=== PATIENT | male | born 1990 | race Two or more races ===

== ENCOUNTER 2017-05-01 19:15 | Emergency (ER) | payer SELFPAY ==
[~2017-05-01] VITALS: Ht 172.7 cm; Wt 108.9 kg
[2017-05-01 19:25] VITALS: BP 156/101
[2017-05-01] MEDS ORDERED: DEXAMETHASONE SOD PHOS 20 MG/5 ML VIAL. ONE (19:41)
[2017-05-01] MEDS ORDERED: EPINEPHrine 1 MG/ML VIAL ONE (19:41)
[2017-05-01] MEDS ORDERED: diphenhydrAMINE 50 MG/ML VIAL ONE (19:41)
[2017-05-01] MEDS ORDERED: FAMOTIDINE 20 MG/2 ML VIAL ONE (19:42)
[2017-05-01] MEDS ORDERED: EPINEPHrine SYRINGE 1 MG/10 ML SYRINGE IM ONE (20:00)
[2017-05-01] MEDS ORDERED: diphenhydrAMINE 50 MG/ML VIAL IVP ONE (20:00)
[2017-05-01] MEDS ORDERED: DEXAMETHASONE SOD PHOS 20 MG/5 ML VIAL. IV ONE (20:00)
[2017-05-01] MEDS ORDERED: FAMOTIDINE 20 MG/2 ML VIAL IVP ONE (20:00)
--- NOTE | 2017-05-01 20:00 | PHYS DOC ---
Adult General Chief Complaint Chief Complaint: ALLERGIC REACTION HPI HPI Patient is a 27 year old male presenting to the emergency department for evaluation of an allergic reaction after he was stung by a wasp on his right ear. Patient has diffuse hives throughout his entire body and he feels itchy but he denies any shortness of breath throat swelling or tongue swelling. Patient denies having any allergic reaction in the past. He is nontoxic appearing with normal vital signs. All communication done with language line blue phone power tool repairer. Review of Systems Review of Systems Constitutional: Denies fever or chills [] Eyes: Denies change in visual acuity, redness, or eye pain [] HENT: Denies nasal congestion or sore throat [] Respiratory: Denies cough or shortness of breath [] Cardiovascular: No additional information not addressed in HPI [] GI: Denies abdominal pain, nausea, vomiting, bloody stools or diarrhea [] : Denies dysuria or hematuria [] Musculoskeletal: Denies back pain or joint pain [] Integument: + rash, skin lesions [] Neurologic: Denies headache, focal weakness or sensory changes [] Current Medications Current Medications Current Medications Medications (Trade) Dose Ordered Sig/Julien Start Time Stop Time Status Last Admin Dose Admin Dexamethasone Sodium Phosphate (Decadron) 20 mg STK-MED ONCE 05/01/17 19:41 05/01/17 19:42 DC Diphenhydramine HCl (Benadryl) 50 mg STK-MED ONCE 05/01/17 19:41 05/01/17 19:42 DC Diphtheria/ Tetanus/Acell Pertussis (Boostrix) 0.5 ml ONCE ONCE 05/01/17 20:15 05/01/17 20:16 DC 05/01/17 20:20 0.5 ML Epinephrine HCl (Adrenalin) 0.3 mg 1X ONCE 05/01/17 20:15 05/01/17 20:16 Cancel Epinephrine HCl (EPINEPHrine SYRINGE) 0.3 mg 1X ONCE 05/01/17 20:00 05/01/17 20:01 DC 05/01/17 19:55 0.3 MG Famotidine (Pepcid) 20 mg STK-MED ONCE 05/01/17 19:42 05/01/17 19:43 DC Allergies Allergies Allergies Coded Allergies Type Severity Reaction Last Updated Verified No Known Drug Allergies 05/01/17 No Physical Exam Physical Exam Constitutional: Well developed, well nourished, no acute distress, non-toxic appearance. [] HENT: Normocephalic, atraumatic, bilateral external ears normal, oropharynx moist, no oral exudates, nose normal. Bite wound to right ear noted however the stinger is not in his ear any longer. Eyes: PERRLA, EOMI, conjunctiva normal, no discharge. [] Neck: Normal range of motion, no tenderness, supple, no stridor. [] Cardiovascular:Heart rate regular rhythm, no murmur [] Lungs & Thorax: Bilateral breath sounds clear to auscultation [] Abdomen: Bowel sounds normal, soft, no tenderness, no masses, no pulsatile masses. [] Skin: Diffuse hives involving chest abdomen back and upper extremities no noted hives on lower extremities. Back: No tenderness, no CVA tenderness. [] Extremities: No tenderness, no cyanosis, no clubbing, ROM intact, no edema. [] Neurologic: Alert and oriented X 3, normal motor function, normal sensory function, no focal deficits noted. [] Current Patient Data Vital Signs Vital Signs Date Time Temp Pulse Resp B/P (MAP) Pulse Ox O2 Delivery O2 Flow Rate FiO2 05/01/17 19:25 97.2 85 17 156/101 (119) 98 Room Air 97.2 EKG EKG [] Radiology/Procedures Radiology/Procedures [] Course & Med Decision Making Course & Med Decision Making Patient given epinephrine and Solu-Medrol Pepcid and Decadron. Patient's hive almost resolved completely and he is still having no shortness of breath or wheezing. His repeat vital signs are normal. I recommended that he stay and in the emergency department for another 3-4 hours and keep a close eye on him. Refused stating that his child is with him and he really wants to go home. Patient verbalized understanding of why wanted to keep him in the emergency room and he accepted the risks of and disability by leaving prior to my recommendation. All communication done with blue phone power tool repairer. I explained the importance of getting the epinephrine pen and how to take Benadryl and how to use the epinephrine pen as well. Patient aware and agreeable with plan for discharge and verbalized understanding of the need for short-term follow-up in the strict ADA return precautions discussed including worsening shortness of breath rash or other general concerns. Dragon Disclaimer Dragon Disclaimer This electronic medical record was generated, in whole or in part, using a voice recognition dictation system. Departure Departure Impression: Primary Impression: Allergic reaction Additional Impression: Wasp sting Disposition: 01 HOME, SELF-CARE Condition: GOOD Patient Instructions: Insect Sting Allergy Additional Instructions: TAKE 25MG OF BENADRYL EVERY 4-6 HOURS FOR ITCHING OR RASH. COME BACK TO THE ED WITH WORSENING RASH, SOA, OR OTHER GENERAL CONCERNS. THANK YOU! Scripts Epinephrine (EPIPEN 2-LAURA) 0.3 Mg/0.3 Ml Auto.injct 0.3 MG IJ PRN for ANAPHYLAXIS, #1 SYR Prov: ARNALDO NOLAN DO 05/01/17 Problem Qualifiers Primary Impression: Allergic reaction Encounter type: initial encounter Qualified Codes: T78.40XA - Allergy, unspecified, initial encounter ARNALDO NOLAN DO May 01, 2017 20:00
[2017-05-01] MEDS ORDERED: EPINEPHrine 1 MG/ML VIAL IM ONE (20:15)
[2017-05-01] MEDS ORDERED: DIPHTH,PERTUSS(ACELL),TET TOX 0.5 ML DISP.SYRIN. VAX IM ONE (20:15)
[2017-05-01] MEDS ORDERED: EPIPEN 2-P0.3 MG/0.3 IJ (20:45)
== END 2017-05-01 21:00 | disposition home or self-care (01) ==
LOC: ER 19:15
DX: T63.461A Toxic effect of venom of wasps, accidental (unintentional), initial encounter (principal); L29.9 Pruritus, unspecified; Y92.89 Other specified places as the place of occurrence of the external cause
CPT/HCPCS: 90471; 90715; 96372; 96374; 96375; 99284; J0171; J1100; J1200; S0028

== ENCOUNTER 2020-03-09 22:09 | Emergency (ER) | payer BC, OTHER ==
[~2020-03-09] VITALS: Ht 175.3 cm; Wt 104.5 kg
[~2020-03-09 22:09] MED LIST: EPIPEN 2-P0.3 MG/0.3 IJ
--- NOTE | 2020-03-09 23:38 | PHYS DOC ---
Past Medical History Past Medical History: High Cholesterol Past Surgical History: No Surgical History Smoking Status: Never Smoker Alcohol Use: None Drug Use: None General Adult EDM: Chief Complaint: NAUSEA/VOMITING/DIARRHA HPI: HPI: 29 year old male presents with the chief complaint of nausea and vomiting and diarrhea. Patient states he has associated abdominal discomfort with headach. Patient symptoms ongoing x 3 days. Patient denies any cough or congestion. Patient is currently febrile. Review of Systems: Review of Systems: Constitutional: positive fever Eyes: Denies change in visual acuity. [] HENT: Denies nasal congestion or sore throat. [] Respiratory: Denies cough or shortness of breath. [] Cardiovascular: Denies chest pain or edema. [] GI: positive abdominal pain, nausea, vomiting, and diarrhea. [] : Denies dysuria. [] Musculoskeletal: Denies back pain or joint pain. [] Integument: Denies rash. [] Neurologic: Denies headache, focal weakness or sensory changes. [] Endocrine: Denies polyuria or polydipsia. [] Lymphatic: Denies swollen glands. [] Psychiatric: Denies depression or anxiety. [] Heart Score: Risk Factors: Risk Factors: DM, Current or recent (<one month) smoker, HTN, HLP, family histo ry of CAD, obesity. Risk Scores: Score 0 - 3: 2.5% MACE over next 6 weeks - Discharge Home Score 4 - 6: 20.3% MACE over next 6 weeks - Admit for Clinical Observation Score 7 - 10: 72.7% MACE over next 6 weeks - Early Invasive Strategies Current Medications: Current Medications Medications (Trade) Dose Ordered Sig/[facility] Start Time Stop Time Status Last Admin Dose Admin Ketorolac Tromethamine (Toradol Im) 60 mg 1X ONCE 03/09/20 23:45 03/09/20 23:46 UNV Ondansetron HCl (Zofran) 4 mg 1X ONCE 03/09/20 23:45 03/09/20 23:46 UNV Allergies: Allergies: Allergies Coded Allergies Type Severity Reaction Last Updated Verified No Known Drug Allergies 05/01/17 No Physical Exam: PE: Constitutional: Well developed, well nourished, no acute distress, non-toxic appearance. [] HENT: Normocephalic, atraumatic, bilateral external ears normal, oropharynx moist, no oral exudates, nose normal. [] Eyes: PERRLA, EOMI, conjunctiva normal, no discharge. [] Neck: Normal range of motion, no tenderness, supple, no stridor. [] No meningeal signs Cardiovascular:tachycardia Lungs & Thorax: Bilateral breath sounds clear to auscultation [] Abdomen: Bowel sounds normal, soft, no tenderness, no masses, no pulsatile masses. [] Skin: Warm, dry, no erythema, no rash. [] Back: No tenderness, no CVA tenderness. [] Extremities: No tenderness, no cyanosis, no clubbing, ROM intact, no edema. [] Neurologic: Alert and oriented X 3, normal motor function, normal sensory function, no focal deficits noted. [] Psychologic: Affect normal, judgement normal, mood normal. [] Current Patient Data: Vital Signs: Vital Signs Date Time Temp Pulse Resp B/P (MAP) Pulse Ox O2 Delivery O2 Flow Rate FiO2 03/09/20 22:30 101.3 95 18 139/73 (95) 96 Room Air 101.3 EKG: EKG: [] Radiology/Procedures: Radiology/Procedures: [] Course & Med Decision Making: Course & Med Decision Making Pertinent Labs and Imaging studies reviewed. (See chart for details) Patient was evaluated for chief complaint. Work-up consisted of laboratory analysis and radiologic imaging. Results reviewed and discussed with patient. Patient's labs within normal limit. Patient's COVID pending. Patient treated with tylenol and zofran. Temperature improved. No vomiting in the ER. Tolerated PO. Patient will be discharged home with zofran. Advised to take tyelnol and ibuprofen. Adrien Disclaimer: Adrien Disclaimer: This electronic medical record was generated, in whole or in part, using a voice recognition dictation system. Departure Departure Impression: Primary Impression: Nausea & vomiting Additional Impressions: Headache Fever Disposition: HOME, SELF-CARE Admitting Physician: HIMS Condition: STABLE Referrals: NO PCP (PCP) Justicifation of Admission Dx: Justifications for Admission: Justification of Admission Dx: N/A JOHANNE WIGGINS DO Mar 09, 2020 23:38
[2020-03-09] MEDS ORDERED: KETOROLAC 60 MG/2 ML VIAL. IM ONE (23:45)
[2020-03-09] MEDS ORDERED: ONDANSETRON PF 4 MG/2 ML VIAL. IM ONE (23:45)
[2020-03-09] MEDS ORDERED: ACETAMINOPHEN 325 MG TABLET. PO ONE (23:45)
[2020-03-09] MEDS ORDERED: IV NORMAL SALINE 1000ML BAG 1,000 ML IV ONE (23:55)
[2020-03-09] MEDS ORDERED: KETOROLAC 30 MG/ML VIAL. IVP ONE (23:55)
[2020-03-09] MEDS ORDERED: ONDANSETRON PF 4 MG/2 ML VIAL. IVP ONE (23:55)
[2020-03-10 00:18] LABS: BASO # 0.1 x10^3/uL (0.0-0.2); BASO % 1 % (0-3); EOS % 0 % (0-3); HEMATOCRIT 43.8 % (39.0-53.0); HEMOGLOBIN 15.6 g/dL (13.0-17.5); LYMPH % 13 % (24-48); MEAN CORPUSCULAR HEMOGLOBIN 31 pg (25-35); MEAN CORPUSCULAR HGB CONC 36 g/dL (31-37); MEAN CORPUSCULAR VOLUME 87 fL (79-100); MONO # 0.4 x10^3/uL (0.0-1.1); MONO % 5 % (0-9); NEUT # 6.2 x10^3/uL (1.8-7.7); NEUT % 81 % (31-73); PLATELET COUNT 228 x10^3/uL (140-400); RED BLOOD COUNT 5.06 x10^6/uL (4.30-5.70); RED CELL DISTRIBUTION WIDTH 12.9 % (11.5-14.5); WHITE BLOOD COUNT 7.6 x10^3/uL (4.0-11.0)
--- NOTE | 2020-03-10 00:18 | RAD ---
AP chest. HISTORY: Fever AP view was taken of the chest. Patient's taken a poor inspiration which limits evaluation. There are no confluent infiltrates. There is no pleural effusion. PA and lateral views with better inspiration would be of benefit. IMPRESSION: 1. Poor inspiration. 2. No definite infiltrates. Electronically signed by: Jesús Ramírez MD (03/10/2020 12:14 AM) [id number]
[2020-03-10 00:30] LABS: CALCIUM 8.1 mg/dL (8.5-10.1); GFR 87.2; POTASSIUM 3.9 mmol/L (3.5-5.1)
[2020-03-10 00:35] LABS: ALBUMIN 3.2 g/dL (3.4-5.0); ALBUMIN/GLOBULIN RATIO 0.8 (1.0-1.7); TOTAL BILIRUBIN 0.7 mg/dL (0.2-1.0); TOTAL PROTEIN 7.3 g/dL (6.4-8.2)
[2020-03-10] MEDS ORDERED: ONDANSETRON PF 4 MG/2 ML VIAL. IVP ONE (01:15)
[2020-03-10] MEDS ORDERED: IV NORMAL SALINE 1000ML BAG 1,000 ML IV ONE (01:15)
[2020-03-10 01:24] LABS: BILIRUBIN,URINE NEGATIVE (NEG); CLARITY,URINE CLEAR; COLOR,URINE AMBER; NITRITE,URINE NEGATIVE (NEG); PH,URINE 7.5 (<5.0-8.0); PROTEIN,URINE 30 mg/dL (NEG-TRACE)
[2020-03-10 01:33] LABS: BACTERIA,URINE FEW /HPF (0-FEW); SQUAMOUS EPITHELIAL CELL,UR FEW /LPF
[2020-03-10] MEDS ORDERED: ACET325T9 PO (01:35)
[2020-03-10] MEDS ORDERED: ONDA4TAB7 PO (01:35)
[2020-03-10] MEDS ORDERED: IBUP200T44 PO (01:35)
[2020-03-10 02:24] VITALS: BP 129/84
== END 2020-03-10 02:32 | disposition home or self-care (01) ==
LOC: ER 22:09
DX: U07.1 COVID-19 (principal); R11.2 Nausea with vomiting, unspecified; R51 Headache; R50.9 Fever, unspecified; R19.7 Diarrhea, unspecified; E78.00 Pure hypercholesterolemia, unspecified
CPT/HCPCS: 36415; 71045; 80053; 81001; 83690; 85025; 96361; 96374; 96375; 99285; C9803; J1885; J2405; J7030; U0003